=== PATIENT | female | born 1995 | race Caucasian/White ===

== ENCOUNTER → 2021-06-30 08:13 | Outpatient (BNVA) | payer OTHER, SELFPAY | PROVIDERS: Family Provider Family Medicine; Visit Provider Nurse Practitioner Women's Health | DX: N92.6 Irregular menstruation, unspecified (principal) | CPT/HCPCS: 81025 ==

== ENCOUNTER → 2021-07-21 11:14 | Outpatient (BNVA) | payer OTHER, SELFPAY | PROVIDERS: Family Provider Family Medicine; Visit Provider Obstetrics & Gynecology | DX: Z34.01 Encounter for supervision of normal first pregnancy, first trimester (principal) | CPT/HCPCS: 80307; 84315; 85027; 86592; 86762; 86803; 86850; 86900; 87086; 87340; 87491; 87591; 87806 ==

== ENCOUNTER → 2021-09-28 15:51 | Outpatient (BNVA) | payer OTHER, SELFPAY | PROVIDERS: Family Provider Family Medicine; Visit Provider Obstetrics & Gynecology | DX: Z36.89 Encounter for other specified antenatal screening (principal) | CPT/HCPCS: 76805 ==

== ENCOUNTER 2021-11-16 10:31 | Outpatient (CLI) | payer OTHER, SELFPAY ==
[2021-11-16 10:42] VITALS: BP 107/58; PULSE 76
[2021-11-16 10:58] VITALS: TEMP 36.3
[2021-11-16 11:11] VITALS: RESP 15
[2021-11-16 11:42] LABS: Add Urine Microscopic? YES; Bilirubin Urine Neg (Negative); Glucose Urine UA Norm (Normal); Ketones Urine Negative (Negative); Leukocyte Esterase Urine 2+ (Negative); Nitrate Urine Negative (Negative); Protein Urine Neg (Negative); Specific Gravity, Urine 1.015 (1.005-1.030); Urine Appearance Clear (CLEAR); Urine Color Yellow (Yellow); Urobilinogen Urine Norm (Negative); pH Urine 8 (5-7)
[2021-11-16 11:49] LABS: Blood Urine Neg (Negative)
[2021-11-16 11:53] VITALS: BMI 25.0
[2021-11-16 11:58] LABS: RBC Urine 0-4 /hpf (0-2)
[2021-11-16 11:59] LABS: Add Urine Culture? No; Bacteria Urine 1+ /hpf; WBC Urine 0-4 /hpf (0-5)
== END 2021-11-16 12:29 | disposition home or self-care (01) ==
LOC: OPOB 10:31 → OBGYN 10:32
PROVIDERS: Family Provider Family Medicine; Visit Provider Family Medicine
DX: O26.899 Other specified pregnancy related conditions, unspecified trimester (principal); Z3A.00 Weeks of gestation of pregnancy not specified; R10.9 Unspecified abdominal pain
CPT/HCPCS: 81001

== ENCOUNTER 2022-02-09 15:29 | Outpatient (CLI) | payer OTHER, SELFPAY ==
[2022-02-09 16:02] VITALS: BP 112/71; PULSE 92; BMI 26.7
[2022-02-09 16:24] VITALS: BP 118/76; PULSE 88
[2022-02-09 16:27] LABS: Basophils % 0.2 %; Eosinophils % 0.1 %; Hematocrit 34.7 % (37.0-47.0); Hemoglobin 11.7 g/dL (11.5-15.3); Lymphocytes # 2.2 10^3/uL (0.8-4.8); Mean Corpuscular HGB Conc 33.7 g/dL (30.0-36.0); Mean Corpuscular Hemoglobin 29.6 pg (28.0-34.0); Mean Corpuscular Volume 87.8 fl (81-99); Mean Platelet Volume 10.8 fL (7.4-10.4); Monocytes # 0.6 10^3/uL (0.2-0.9); Monocytes % 4.2 %; Neutrophils # 10.56 10^3/uL (1.8-7.7); Neutrophils % 78.9 %; Nucleated Red Blood Cells % 0 %; Platelet Count 198 10^3/cmm (130-400); Red Blood Count 3.95 10^6/uL (4.1-5.3); Red Cell Distribution Width 12.8 % (12.1-15.1); White Blood Count 13.4 10^3/uL (4.0-10.0)
[2022-02-09 16:32] VITALS: BP 114/70; PULSE 86
[2022-02-09 16:36] LABS: Alanine Aminotransferase 16 U/L (0-33); Albumin Level 3.8 g/dL (3.5-5.2); Alkaline Phosphatase 180 U/L (35-105); Anion Gap 16.4 (5-19); Aspartate Amino Transferase 21 U/L (0-32); Blood Urea Nitrogen 5 mg/dL (6-20); Calcium 9.2 mg/dL (8.5-10.5); Carbon Dioxide 21 mmol/L (22-29); Chloride 102 mmol/L (98-107); Globulin 2.7 g/dL (1.3-4.6); Glomerular Filtration Rate 273.3 mL/min (90-130); Glucose 132 mg/dL (65-115); Osmolality Calculated 281 mOsm/kg (285-295); Potassium 3.4 mmol/L (3.5-5.1); Sodium 136 mmol/L (136-145); Total Bilirubin 0.3 mg/dL (0.15-1.2); Total Protein 6.5 g/dL (6.6-8.7); Uric Acid 4.1 mg/dL (2.4-5.7)
[2022-02-09 16:37] LABS: Urine Creatinine 25 mg/dL (28-217); Urine Protein Random 5 mg/dL
[2022-02-09 16:48] VITALS: BP 108/65; PULSE 99
[2022-02-09 16:49] LABS: Bilirubin Urine Neg (Negative); Blood Urine 2+ (Negative); Glucose Urine UA Norm (Normal); Ketones Urine 1+ (Negative); Leukocyte Esterase Urine 2+ (Negative); Nitrate Urine Negative (Negative); Protein Urine Neg (Negative); Urine Appearance Clear (CLEAR); Urine Color Yellow (Yellow); Urobilinogen Urine Norm (Negative); pH Urine 7 (5-7)
[2022-02-09 16:50] LABS: Add Urine Culture? Yes; Add Urine Microscopic? YES; Bacteria Urine TRACE /hpf
[2022-02-09 17:03] VITALS: BP 118/81; PULSE 97
== END 2022-02-09 17:20 | disposition home or self-care (01) ==
LOC: OPOB 15:30 → OBGYN 15:31
PROVIDERS: Family Provider Family Medicine; Visit Provider Family Medicine
DX: O16.3 Unspecified maternal hypertension, third trimester (principal); Z3A.40 40 weeks gestation of pregnancy
CPT/HCPCS: 36415; 59025; 80053; 81001; 82570; 84156; 84550; 85025; 87086; 99211

== ENCOUNTER 2022-02-11 18:20 | Inpatient (IN) | payer OTHER, SELFPAY ==
[2022-02-11] VITALS (9 sets, daily range): BP systolic 120–165; BP diastolic 75–102; PULSE 81–132; RESP 16; O2SAT 97–99; BMI 25.8
[2022-02-11 19:29] LABS: Basophils % 0.2 %; Eosinophils % 0.1 %; Hematocrit 37.5 % (37.0-47.0); Hemoglobin 12.5 g/dL (11.5-15.3); Lymphocytes # 1.9 10^3/uL (0.8-4.8); Lymphocytes % 11.6 %; Mean Corpuscular HGB Conc 33.3 g/dL (30.0-36.0); Mean Corpuscular Hemoglobin 29.5 pg (28.0-34.0); Mean Corpuscular Volume 88.4 fl (81-99); Mean Platelet Volume 10.8 fL (7.4-10.4); Monocytes % 6.1 %; Neutrophils # 12.98 10^3/uL (1.8-7.7); Neutrophils % 81.3 %; Nucleated Red Blood Cells % 0 %; Platelet Count 216 10^3/cmm (130-400); Red Blood Count 4.24 10^6/uL (4.1-5.3); Red Cell Distribution Width 12.9 % (12.1-15.1)
--- NOTE | 2022-02-11 21:37 | PM.OPHPUD ---
Labor & Delivery H&P Update Date of Procedure: February 11, 2022 Date H&P Performed: 02/09/22 Changes to previous documentation: Cervix was dilated to 5 cm Admission Diagnosis: 26-year-old 1 at 40 weeks estimated gestational age Planned procedure: Spontaneous vaginal delivery Other information: The patient presented to the hospital having consistent contractions and dilated to 5 cm, having contractions every 2 to 5 minutes. When she initially arrived, she had a couple of blood pressures that were elevated. Because she had previously had elevated blood pressures that resolved with time in the past, I had the nurses recheck it again after 20 to 30 minutes. At that point, her blood pressure results normal. She had no other signs of preeclampsia. Her had otherwise been unremarkable. Her blood type was O+. Her antibody screen was negative. Her infectious disease profile was within normal limits. Her glucose screen was 132. She was GBS negative. Rubella immune. She did have a full preeclamptic panel performed on Saturday. Her protein was negative. With a protein creatinine ratio of 0.2. The remainder of her preeclamptic profile was also largely within normal limits. Related Problem List Diagnoses (1) 40 weeks gestation of : (2) Active labor at term: A&P Assessment and plan (1) 40 weeks gestation of : I anticipate routine labor. She is hoping to have a natural delivery. We will consider epidural or other pain control as needed. Status: Acute (2) Active labor at term: Status: Acute
[2022-02-11] MEDS: dextrose 5%-lactated ringers 1,000 ML 125 ML IV (22:15)
--- NOTE | 2022-02-11 22:36 | PM.DELIVERY ---
Delivery Note: Date of delivery: February 11, 2022 Pre-delivery diagnoses: 1. 26-year-old 1 at 40 weeks estimated gestational age Post-delivery diagnoses: Status post spontaneous vaginal delivery Procedure: Spontaneous vaginal delivery Delivering Physician: Yair Talbert Estimated blood loss (mL): 150 Pre-Delivery Course: The patient presented to the hospital in active labor. Spontaneous rupture of membranes occurred about 2 hours prior to delivery. Meconium was noted. She progressed to complete without difficulty. Delivery: DELIVERY: The patient progressed to complete without difficulty. She delivered a female with a weight of 7 pounds 1 ounce with Apgars of 8, 9. The baby was delivered from the SAVI position. and placed on the mother's abdomen. Bulb suction of the baby's mouth and nose occurred. The cord was then clamped and cut. A nuchal cord was noted and reduced prior to delivery of the head. Moderate meconium was noted. The placenta and 3 vessel cord were delivered intact shortly thereafter. The perineum and vaginal vault were carefully examined. The patient had several superficial vaginal wall lacerations. In her left vaginal posterior wall laceration continued to bleed. A single [id number] stitch was placed with 3-0 Vicryl and excellent hemostasis was noted. Both the mother and the baby were in stable condition. Post-Delivery Status: Good History History History 1 Term Miscarriages/Ectopic Living Children A&P Assessment and plan (1) 40 weeks gestation of : Status: Acute (2) Spontaneous vaginal delivery: I anticipate routine care. The patient plans to breast-feed. Status: Acute Coding Level of Care Code Acute Executive Staff Assistant for Chg Fwd Diagnoses 40 weeks gestation of Z3A.40 Spontaneous vaginal delivery O80
[2022-02-12] VITALS (9 sets, daily range): BP systolic 99–125; BP diastolic 61–87; PULSE 60–115; RESP 16; TEMP 36.6–36.8; O2SAT 97–99
[2022-02-12] MEDS: oxytocin 30 UNIT/500 ML BAG 600 UNIT IV (06:44)
[2022-02-12] MEDS: ibuprofen 800 mg tablet PO ×3 (08:07→22:14)
[2022-02-12] MEDS: docusate sodium 100 mg Capsule PO (08:07)
[2022-02-12] MEDS: prenatal vitamin Capsule 1 CAP PO (08:07)
[2022-02-12 11:39] LABS: Hematocrit 27.7 % (37.0-47.0); Hemoglobin 9.1 g/dL (11.5-15.3); Mean Corpuscular HGB Conc 32.9 g/dL (30.0-36.0); Mean Corpuscular Hemoglobin 29.3 pg (28.0-34.0); Mean Corpuscular Volume 89.1 fl (81-99); Mean Platelet Volume 10.4 fL (7.4-10.4); Platelet Count 175 10^3/cmm (130-400); Red Blood Count 3.11 10^6/uL (4.1-5.3); Red Cell Distribution Width 13.1 % (12.1-15.1); White Blood Count 17.6 10^3/uL (4.0-10.0)
--- NOTE | 2022-02-12 16:40 | P.PN_ITS ---
INSPECTOR OPTICAL INSTRUMENT Subjective Subjective: Interval history: The patient is doing very well. Her bleeding has been scant. Her pain has been well controlled. She is breast-feeding well. There have been no concerns. Labor: Station: 0 Amniotic Membrane Status: Bulging Monitor Mode: External Contraction Pattern: Regular Vitals/I&O/Wt Last Vital Signs Pulse 110 H 02/12/22 04:22 Resp 16 02/12/22 04:22 BP 110/71 02/12/22 04:22 Pulse Ox 97 02/12/22 04:22 O2 Del Method 02/12/22 04:22 02/12/22 02/12/22 02/12/22 06:59 14:59 22:59 Intake Total 156.25 / 156.25 Balance 156.25 / 156.25 Weight last 48 hrs Weight 146 lb Physical Exam Narrative: The patient is alert. She appears comfortable. Her heart has a regular rate and rhythm with no murmurs appreciated. Lungs are clear to auscultation bilaterally. Her fundus is firm and below the umbilicus. Data : 02/12/22 11:19 A&P Assessment and plan (1) Spontaneous vaginal delivery: The patient has done very well . Anticipate she will build to be discharged home tomorrow morning. There have been no concerns. Status: Acute (2) 40 weeks gestation of : Status: Acute Attestations Medical Necessity Statement*: Routine post vaginal delivery care Coding Level of Care Code Acute Security Vehicle Patrol Officer for Chg Fwd Diagnoses Spontaneous vaginal delivery O80 40 weeks gestation of Z3A.40
--- NOTE | 2022-02-13 03:22 | P.DS_ITS ---
Discharge Providers SUPERVISOR AGRICULTURAL EDUCATION Date of Admission: 02/11/22 18:20 Date of Discharge: 02/13/22 Attending Provider at Admission: Yair Talbert MD Attending Provider at Discharge: Yair Talbert MD Diagnoses at Discharge Discharge Diagnosis (1) Spontaneous vaginal delivery: Status: Acute (2) 40 weeks gestation of : Status: Acute Reason for Visit Reason for Visit: Contractions Hospital Course Hospital Course The patient presented to the hospital in active labor. She progressed to c omplete and had an unremarkable delivery of a healthy-appearing 40-week female infant. Her course was unremarkable. Her bleeding was within normal limits. Her pain was well controlled. Initially, she had some difficulty with breast-feeding, but that improved during her hospital stay. Physical Exam Narrative: The patient is alert. She appears comfortable. Her heart has a regular rate and rhythm with no murmurs appreciated. Lungs are clear to auscultation bilaterally. Her fundus is firm and below the umbilicus. History History History 1 Term Miscarriages/Ectopic Living Children Discharge Data Studies Completed and Pending Laboratory Results WBC 17.6 10^3/uL (4.0-10.0) H 02/12/22 11:19 RBC 3.11 10^6/uL (4.1-5.3) L 02/12/22 11:19 Hgb 9.1 g/dL (11.5-15.3) L 02/12/22 11:19 Hct 27.7 % (37.0-47.0) L 02/12/22 11:19 MCV 89.1 fl (81-99) 02/12/22 11:19 MCH 29.3 pg (28.0-34.0) 02/12/22 11:19 MCHC 32.9 g/dL (30.0-36.0) 02/12/22 11:19 RDW 13.1 % (12.1-15.1) 02/12/22 11:19 Plt Count 175 10^3/cmm (130-400) 02/12/22 11:19 MPV 10.4 fL (7.4-10.4) 02/12/22 11:19 Neut % (Auto) 81.3 % 02/11/22 18:51 Lymph % (Auto) 11.6 % 02/11/22 18:51 [place] % (Auto) 6.1 % 02/11/22 18:51 Eos % (Auto) 0.1 % 02/11/22 18:51 Baso % (Auto) 0.2 % 02/11/22 18:51 Neut # (Auto) 12.98 10^3/uL (1.8-7.7) H 02/11/22 18:51 Lymph # (Auto) 1.9 10^3/uL (0.8-4.8) 02/11/22 18:51 [place] # (Auto) 1.0 10^3/uL (0.2-0.9) H 02/11/22 18:51 Eos # (Auto) 0.0 10^3/uL (0.0-0.8) 02/11/22 18:51 Baso # (Auto) 0.0 10^3/uL (0.0-0.1) 02/11/22 18:51 Nucleated RBC % (auto) 0 % 02/11/22 18:51 Nucleated RBCs # 0.0 /100WBC 02/11/22 18:51 Vitals Last Vital Signs Temp 97.9 F 02/12/22 23:35 Pulse 72 02/12/22 23:35 Resp 16 02/12/22 23:35 BP 114/64 02/12/22 23:35 Pulse Ox 98 02/12/22 23:35 O2 Del Method 02/12/22 23:35 Discharge Plan Discharge Patient Disposition: Home Condition: Stable Prescriptions: New ibuprofen 800 mg Tablet 800 mg PO TID Qty: 45 0RF Continued prenat.vits,michael,[id number] Tablet 1 tab PO DAILY vitamin E (dl, acetate) 45 mg (100 unit) capsule 45 mg PO DAILY Discharge Orders: Discharge Order (Routine); Ordered 02/13/22 Ordered By: Yair Talbert Referrals: Yair Talbert MD [Physician] - 6 Weeks Discharge Diet: Usual diet Discharge Activity: Limit activity as instructed Patient Instructions: Opioid Safety Discharge Attestations SUPERVISOR AGRICULTURAL EDUCATION Time Spent in Discharge Care*: less than 30 min Coding Level of Care Code Acute Hide Trimmer for Chg Fwd Diagnoses Spontaneous vaginal delivery O80 40 weeks gestation of Z3A.40
[2022-02-13 04:40] VITALS: BP 114/66; PULSE 81; RESP 18; TEMP 36.8; O2SAT 98
[2022-02-13 12:15] VITALS: BP 110/68; PULSE 80; RESP 18; TEMP 36.8; O2SAT 98
== END 2022-02-13 12:15 | disposition home or self-care (01) | DRG 806 ==
LOC: OPOB 18:27 → OBGYN 18:27
PROVIDERS: Admitting Provider Family Medicine; Family Provider Family Medicine; Visit Provider Family Medicine
DX: O77.0 Labor and delivery complicated by meconium in amniotic fluid (principal); O71.4 Obstetric high vaginal laceration alone; Z37.0 Single live birth; O69.81X0 Labor and delivery complicated by cord around neck, without compression, not applicable or unspecified; Z3A.40 40 weeks gestation of pregnancy
CPT/HCPCS: 12345; 36415; 59409; 85025; 85027

== ENCOUNTER 2022-04-09 19:20 | Emergency (ER) | payer OTHER, SELFPAY ==
[2022-04-09 19:35] VITALS: BP 147/95; PULSE 102; RESP 16; TEMP 36.2; O2SAT 98
--- NOTE | 2022-04-09 23:37 | ED_ITS ---
HPI - General Adult General: Chief complaint: Airway/Esophagus Foreign Body Stated complaint: breathing troubles Time Seen by Provider: 04/09/22 23:37 History of Present Illness: 26-year-old female comes in [facility] for complaints of feeling as something is stuck in her throat. Patient was eating a turkey burger when she felt it got stuck in her throat patient since then has been able to swallow it down and has been drinking water without difficulty but continues to have some discomfort in her throat. Patient appears nontoxic. Patient denies any nausea or vomiting. Patient recently given approximately 2 to 3 months ago and continues to take vitamin. Patient denies any recurrent heartburn since having baby. Associated symptoms: Deny nausea or vomiting Review of Systems Const: Denies: fever(s) ENMT: Reports: throat pain GI: Denies: nausea or vomiting PFSH ED PFSH: Medical History No pertinent past medical history neghx:htn,dm,thyroid,dvt/pe PCP: none Surgical History No pertinent past surgical history Family History Grandfather Diabetes MGF Father Lung disease COPD Denies family history of Hyperlipidemia Chronic kidney disease (CKD) Family history of premature coronary artery disease Cancer Hypertension Stroke Physical Exam Const: COMMON NORMALS: alert HENMT: COMMON NORMALS: normocephalic HEAD & SCALP: normocephalic MOUTH: Normal oral and palatal mucosa present THROAT: posterior oropharynx normal Neck/C-Spine: COMMON NORMALS: full ROM Resp: COMMON NORMALS: normal respiratory effort and clear to auscultation bilaterally AUSCULTATION: clear to auscultation bilaterally Cardio: COMMON NORMALS: regular rate and regular rhythm RATE: regular rate RHYTHM: regular rhythm GI: COMMON NORMALS: Soft to palpation and non-tender PALPATION: Yes Soft to palpation : COMMON NORMALS: Yes no CVA tenderness BLADDER/KIDNEY EXAM: Yes no CVA tenderness Back/Pelvis: COMMON NORMALS: no CVA tenderness Extremity: COMMON NORMALS: normal to inspection Neuro: SENSORIUM/ORIENTATION: Yes alert Skin: COMMON NORMALS: turgor normal GENERAL SKIN EXAM: turgor normal Course Vital Signs: Vital signs: Vital Signs Temperature 97.2 F L 04/09/22 19:35 Pulse Rate 102 H 04/09/22 19:35 Respiratory Rate 16 04/09/22 19:35 Blood Pressure 147/95 04/09/22 19:35 Pulse Oximetry 98 04/09/22 19:35 Oxygen Delivery Me thod 04/09/22 19:35 MDM - General Adult Medical Decision Making 26-year-old female comes in today with sensation of foreign body in throat. On exam patient is swallowing secretions without any difficulty. Patient has had no episodes of emesis and has been able to drink water. Abdomen soft nontender. Respirations are even lungs are clear to auscultation. Vital signs are normal. Differential diagnosis includes esophageal foreign body, esophageal strain, malingering. X-ray of soft tissues of neck and chest showed no sign of foreign body or abnormality. Patient was given a GI cocktail with minimal to no relief. Reviewed exam with patient with recommendations for follow-up with primary care in the morning, return to the ER for worsening symptoms such as fever, increased chest pain, emesis, blood in emesis or stool. Discharge Plan Discharge Patient Disposition: Home Clinical Impression: Sensation of foreign body in throat Condition: Stable Prescriptions: No Action prenat.vits,michael,hya-olhx-kmlnr Tablet 1 tab PO DAILY vitamin E (dl, acetate) 45 mg (100 unit) capsule 45 mg PO DAILY ibuprofen 800 mg Tablet 800 mg PO TID Qty: 45 0RF Discharge Orders: Discharge ED (Routine); Ordered 04/10/22 Ordered By: Checo Resendiz Activity Restrictions/Additional Instructions: Follow-up with primary care in the morning. Eat a mechanical soft diet for the next 24 to 48 hours. Return to ER for severe pain, high fever greater than 100.4, blood in vomit or stool. Coding Level of Care Code ED Heavy Lift Rigger for Tierney Fwhammad Exam Comprehensive
--- NOTE | 2022-04-09 23:41 | XRR_ITS ---
PROCEDURE INFORMATION: Exam: XR Soft Tissue Neck Exam date and time: 04/09/2022 11:55 PM Age: 26 years old Clinical indication: Other: Possible foregin body; Patient HX: Patient feels a piece of food is stuck in throat. Is able to keep water down. ; Additional info: Foreign body sensation TECHNIQUE: Imaging protocol: Radiologic exam of the soft tissues of the neck. COMPARISON: No relevant prior studies available. FINDINGS: Airway: Normal. No abnormal narrowing. Soft tissues: Normal. Normal epiglottis. Bones/joints: Unremarkable. XR/XR soft tissue neck [id number] IMPRESSION: No acute findings. Negative for radiodense foreign body.
--- NOTE | 2022-04-09 23:41 | XRR_ITS ---
PROCEDURE INFORMATION: Exam: XR Chest Exam date and time: 04/09/2022 11:55 PM Age: 26 years old Clinical indication: Other: Foreign body; Patient HX: Patient thinks a piece of food is stuck in throat. Able to keep water down. ; Additional info: Foreign body sensation TECHNIQUE: Imaging protocol: Radiologic exam of the chest. Views: 2 views. COMPARISON: No relevant prior studies available. FINDINGS: Lungs: Right lower lobe atelectasis versus infiltrate. Pleural spaces: Unremarkable. No pleural effusion. No pneumothorax. Heart/Mediastinum: Unremarkable. No cardiomegaly. Bones/joints: Unremarkable. XR/XR chest 2V* [id number] IMPRESSION: Right lower lobe atelectasis versus infiltrate.
[2022-04-09] MEDS: lidocaine 2% viscous 15 ML, aluminum-mag hydrox-simethicon 30 ML, sucralfate oral liq 1 GM PO (23:52)
[2022-04-10 00:38] VITALS: BP 118/73; PULSE 90; RESP 14; O2SAT 97
[2022-04-10 00:46] VITALS: BP 118/73; PULSE 90; RESP 14; O2SAT 97
== END 2022-04-10 00:47 | disposition home or self-care (01) ==
PROVIDERS: Emergency Provider Nurse Practitioner Family
DX: R09.89 Other specified symptoms and signs involving the circulatory and respiratory systems (principal)
CPT/HCPCS: 70360; 71046; 99283

== ENCOUNTER 2024-07-29 10:47 | Emergency (ER) | payer OTHER, SELFPAY ==
[2024-07-29 10:59] VITALS: BP 105/68; PULSE 60; RESP 16; TEMP 36.8; O2SAT 99; BMI 24.7
[2024-07-29 11:25] LABS: Basophils # 0.1 10^3/uL (0.0-0.1); Basophils % 0.6 %; Eosinophils # 0.1 10^3/uL (0.0-0.8); Eosinophils % 1.1 %; Hematocrit 36.8 % (36-47); Lymphocytes # 3.2 10^3/uL (0.8-4.8); Lymphocytes % 40.1 %; Mean Corpuscular HGB Conc 33.2 g/dL (30-55); Mean Corpuscular Hemoglobin 28.4 pg (27-33); Mean Corpuscular Volume 85.8 fl (85-98); Monocytes # 0.7 10^3/uL (0.2-0.9); Monocytes % 8.2 %; Neutrophils # 3.94 10^3/uL (1.8-7.7); Neutrophils % 49.6 %; Nucleated Red Blood Cells % 0 %; Platelet Count 260 10^3/cmm (157-399); Red Blood Count 4.29 10^6/uL (3.85-5.65); Red Cell Distribution Width 13.1 % (12.1-15.1); White Blood Count 7.95 10^3/uL (3.29-11.43)
--- NOTE | 2024-07-29 11:27 | W.ED.ABDPA2 ---
HPI - Abdominal Pain General: Chief Complaint: Abdominal Pain Stated Complaint: right side abdominal pain Time Seen by Provider: 07/29/24 11:06 History of Present Illness: 29-year-old female presents emergency room with a right lower quadrant abdominal pain that she has had for a 1 week. She was seen in the primary care doctor's office thought she had a yeast infection. She states she is continuing to have pain. She has not improved at all. She denies any dysuria Associated Symptoms: Denies chills, dysuria and fever(s) Related Data Home Medications ?Medication ?Instructions ?Recorded ?Confirmed fluoxetine 40 mg capsule 40 mg PO DAILY 07/29/24 07/29/24 ibuprofen 800 mg tablet 800 mg PO TID PRN Fever Or Pain 07/29/24 07/29/24 vit no.133-ferrous 1 tab PO DAILY 07/29/24 07/29/24 fumarate 28 mg-folic acid 800 mcg tablet () Previous Rx's ?Medication ?Instructions ?Recorded diclofenac sodium 75 mg 75 mg PO Q12H PRN pain #20 tabs 07/29/24 tablet,delayed release lactulose 20 gram/30 mL oral 20 g (30 mL) PO Q2H 24 hours #360 07/29/24 solution mL Allergies Allergy/AdvReac Type Severity Reaction Status Date / Time No Known Allergies Allergy Verified 09/29/21 10:52 Review of Systems Const: Denies: fever(s) or chills Card: Denies: chest pain Resp: Denies: dyspnea GI: Denies: abdominal pain : Denies: dysuria, urinary frequency or urinary urgency Musc: Denies: neck pain or back pain Skin/Breast: Denies: rash [facility] ED PFSH: Medical History No pertinent past medical history neghx:htn,dm,thyroid,dvt/pe PCP: none Surgical History No pertinent past surgical history Family History Grandfather Diabetes MGF Father Lung disease COPD Denies family history of Hyperlipidemia Chronic kidney disease (CKD) Family history of premature coronary artery disease Cancer Hypertension Stroke Physical Exam Const: COMMON NORMALS: no acute distress GENERAL APPEARANCE: cooperative and comfortable ORIENTATION/CONSCIOUSNESS: Yes awake, Yes oriented to person, Yes oriented to place and Yes oriented to time HENMT: COMMON NORMALS: normocephalic, atraumatic and hearing grossly normal bilaterally HEAD & SCALP: normocephalic and atraumatic Resp: COMMON NORMALS: normal respiratory effort, No retractions, No use of accessory muscles and clear to auscultation bilaterally AUSCULTATION: clear to auscultation bilaterally Cardio: COMMON NORMALS: regular rate, regular rhythm and No murmurs present (Cardio) RATE: regular rate RHYTHM: regular rhythm GI: COMMON NORMALS: Soft to palpation and No hepatosplenomegaly present AUSCULTATION: Yes normoactive bowel sounds PALPATION: Yes Soft to palpation, No Tenderness to palpation present (GI), No Guarding due to palpation present (GI) and Yes No hepatosplenomegaly present Extremity: COMMON NORMALS: normal to inspection, capillary refill normal, no clubbing, cyanosis or edema, no calf tenderness and no pedal edema Neuro: SENSORIUM/ORIENTATION: Yes oriented to person, Yes oriented to place and Yes oriented to time Skin: COMMON NORMALS: no rashes or lesions noted GENERAL SKIN EXAM: no rashes or lesions noted Course Vital Signs: Vital signs: Vital Signs Temperature 98.2 F 07/29/24 10:59 Pulse Rate 73 07/29/24 14:01 Respiratory Rate 16 07/29/24 10:59 Blood Pressure 99/64 07/29/24 14:01 Pulse Oximetry 100 07/29/24 14:01 Oxygen Delivery Me thod Room Air 07/29/24 13:16 MDM - Abdominal Pain Medical Decision Making Appendix not definitively identified on the CT however given a normal white count Present symptoms and relatively normal exam I do not believe she has an acute appendicitis she does have a fair amount of retained stool in the right sided colon additionally she has some fluid in pelvis consistent with recent ovarian cyst either these could be the cause of her pain. No emergent condition found will discharge home with diclofenac. lactulose to relieve her constipation. Follow-up with primary care doctor improving Differential Diagnosis Likely abdominal pain, acute appendicitis, calculus of kidney, constipation and gastroenteritis Medical Records I reviewed the patient's medical records. Lab Data I reviewed the patient's lab results. 07/29/24 11:22 07/29/24 11:22 Labs/Radiology: Radiology Impressions Abdomen/Pelvis CT 07/29/24 11:33 IMPRESSION: 1. Appendix is not visualized but no evidence of acute appendicitis. 2. Peripheral enhancing RIGHT corpus luteum cyst with a small amount of free fluid in the cul-de-sac. 3. Mild pancolonic constipation. 4. Mild diffuse fatty infiltration of the liver. 5. Small esophageal canal hernia. 6. No other acute findings. Laboratory Results WBC 7.95 10^3/uL (3.29-11.43) 07/29/24 11:22 RBC 4.29 10^6/uL (3.85-5.65) 07/29/24 11:22 Hgb 12.20 g/dL (11.27-16.99) 07/29/24 11:22 Hct 36.8 % (36-47) 07/29/24 11:22 MCV 85.8 fl (85-98) 07/29/24 11:22 MCH 28.4 pg (27-33) 07/29/24 11:22 MCHC 33.2 g/dL (30-55) 07/29/24 11:22 RDW 13.1 % (12.1-15.1) 07/29/24 11:22 Plt Count 260 10^3/cmm (157-399) 07/29/24 11:22 MPV 9.0 fL (7.4-10.4) 07/29/24 11:22 Neut % (Auto) 49.6 % 07/29/24 11:22 Lymph % (Auto) 40.1 % 07/29/24 11:22 [place] % (Auto) 8.2 % 07/29/24 11:22 Eos % (Auto) 1.1 % 07/29/24 11:22 Baso % (Auto) 0.6 % 07/29/24 11:22 Neut # (Auto) 3.94 10^3/uL (1.8-7.7) 07/29/24 11:22 Lymph # (Auto) 3.2 10^3/uL (0.8-4.8) 07/29/24 11:22 [place] # (Auto) 0.7 10^3/uL (0.2-0.9) 07/29/24 11:22 Eos # (Auto) 0.1 10^3/uL (0.0-0.8) 07/29/24 11:22 Baso # (Auto) 0.1 10^3/uL (0.0-0.1) 07/29/24 11:22 Nucleated RBC % (auto) 0 % 07/29/24 11:22 Nucleated RBCs # 0.0 /100WBC 07/29/24 11:22 Sodium 138 mmol/L (136-145) 07/29/24 11:22 Potassium 4.0 mmol/L (3.5-5.1) 07/29/24 11:22 Chloride 100 mmol/L (98-107) 07/29/24 11:22 Carbon Dioxide 25 mmol/L (22-29) 07/29/24 11:22 Anion Gap 17.0 (5-19) 07/29/24 11:22 BUN 11 mg/dL (6-20) 07/29/24 11:22 Creatinine 0.5 mg/dL (0.5-0.9) 07/29/24 11:22 GFR Calculation 148.0 mL/min (90-130) H 07/29/24 11:22 Glucose 89 mg/dL (65-115) 07/29/24 11:22 Calculated Osmolality 285 mOsm/kg (285-295) 07/29/24 11:22 Calcium 9.2 mg/dL (8.5-10.5) 07/29/24 11:22 Total Bilirubin 0.3 mg/dL (0.15-1.2) 07/29/24 11:22 AST 14 U/L (0-32) 07/29/24 11:22 ALT 15 U/L (0-33) 07/29/24 11:22 Alkaline Phosphatase 63 U/L (35-105) 07/29/24 11:22 Total Protein 7.1 g/dL (6.6-8.7) 07/29/24 11:22 Albumin 4.4 g/dL (3.5-5.2) 07/29/24 11:22 Globulin 2.7 g/dL (1.3-4.6) 07/29/24 11:22 Lipase 46 U/L (13-60) 07/29/24 11:22 HCG, Qual Negative (Negative) 07/29/24 11:22 Urine Color Yellow (Yellow) 07/29/24 11:32 Urine Appearance Clear (CLEAR) 07/29/24 11:32 Urine pH 7.5 (5-7) 07/29/24 11:32 Ur Specific [place] 1.007 (1.005-1.030) 07/29/24 11:32 Urine Protein Negative (Negative) 07/29/24 11:32 Urine Glucose (UA) Negative (Normal) 07/29/24 11:32 Urine Ketones Negative (Negative) 07/29/24 11:32 Urine Blood Negative (Negative) 07/29/24 11:32 Urine Nitrate Negative (Negative) 07/29/24 11:32 Urine Bilirubin Negative (Negative) 07/29/24 11:32 Urine Urobilinogen 0.2 mg/dL (Negative) 07/29/24 11:32 Ur Leukocyte Esterase Negative (Negative) 07/29/24 11:32 Amorphous Sediment Not Reportable 07/29/24 11:32 All radiology interpretation(s) finalized by discharge Discharge Plan Discharge Patient Disposition: Home Clinical Impression: Abdominal pain, Constipation Condition: Stable Prescriptions: New diclofenac sodium 75 mg tablet,delayed release (DR/EC) 75 mg PO Q12H PRN (Reason: pain) Qty: 20 0RF lactulose 20 gram/30 mL solution 20 g PO Q2H 1 Days Qty: 360 0RF Rx Instructions: until desired laxative effect No Action fluoxetine 40 mg capsule 40 mg PO DAILY 28-800 mg-mcg Tablet 1 tab PO DAILY ibuprofen 800 mg tablet 800 mg PO TID PRN (Reason: Fever Or Pain) Discharge Orders: Discharge ED (Routine); Ordered 07/29/24 Ordered By: Ray David Discharge Diet: Usual diet Discharge Activity: Increase activity as tolerated Patient Instructions: Abdominal Pain (ED), Opioid Safety, Pain Management Activity Restrictions/Additional Instructions: Thank you for choosing [facility] for your healthcare needs today. It is very important that you follow up as instructed or that you return to the Emergency Department should you have concerns or if your condition changes or worsens in any way. You were seen in the emergency room with pelvic pain. There is signs you may have had a recent ovarian cyst she also had constipation. Remainder of your labs were normal no other acute findings on the CT. You can is diclofenac and lactulose as needed. Print Language: Belarusian Coding Level of Care Code ED Marketing Administrative Assistant for Tierney Chowdary
--- NOTE | 2024-07-29 11:33 | CT_ITS ---
WS: [id number] CT ABDOMEN PELVIS TECHNIQUE: Contrast-enhanced CT of the abdomen and pelvis with coronal and sagittal reformatted images. CLINICAL INFORMATION: abd pain/right lower quadrant COMPARISON: None. DLP: 420.[address] scans at [facility] use at least one of these dose optimization techniques: automated exposure control; mA and/or kV adjustment per patient size (includes targeted exams where dose is matched to clinical indication); or iterative reconstruction. FINDINGS: Mild diffuse fatty infiltration of the liver. Lung bases are well aerated. Normal spleen. Small esophageal hiatal hernia. Adrenal glands are normal. Normal renal parenchymal enhancement. No hydronephrosis. Normal spleen. Normal pancreas. Portal vein and splenic vein are normal. Normal caliber abdominal aorta. Celiac and SMA are patent. Tiny fat-containing umbilical hernia. Appendix is not visualized but no evidence of acute appendicitis. Mild pancolonic constipation. Peripheral enhancing RIGHT corpus luteum cyst measuring 1.6 x 1.1 cm. Small amount of free fluid in the cul-de-sac. No evidence of small or large bowel obstruction. Mild thoracolumbar scoliosis. CT/CT abdomen pelvis w con* [id number] IMPRESSION: 1. Appendix is not visualized but no evidence of acute appendicitis. 2. Peripheral enhancing RIGHT corpus luteum cyst with a small amount of free f luid in the cul-de-sac. 3. Mild pancolonic constipation. 4. Mild diffuse fatty infiltration of the liver. 5. Small esophageal canal hernia. 6. No other acute findings.
[2024-07-29 11:36] VITALS: BP 102/63; PULSE 71; O2SAT 99
[2024-07-29 11:49] LABS: Alanine Aminotransferase 15 U/L (0-33); Albumin Level 4.4 g/dL (3.5-5.2); Alkaline Phosphatase 63 U/L (35-105); Aspartate Amino Transferase 14 U/L (0-32); Blood Urea Nitrogen 11 mg/dL (6-20); Calcium 9.2 mg/dL (8.5-10.5); Carbon Dioxide 25 mmol/L (22-29); Chloride 100 mmol/L (98-107); Creatinine Clr Calc Pharmacy 151.6555; Globulin 2.7 g/dL (1.3-4.6); Glucose 89 mg/dL (65-115); Lipase 46 U/L (13-60); Osmolality Calculated 285 mOsm/kg (285-295); Sodium 138 mmol/L (136-145); Total Bilirubin 0.3 mg/dL (0.15-1.2); Total Protein 7.1 g/dL (6.6-8.7)
[2024-07-29 11:50] LABS: Add Urine Microscopic? NO
[2024-07-29 11:52] LABS: Bilirubin Urine Negative (Negative); Blood Urine Negative (Negative); Glucose Urine UA Negative (Normal); Ketones Urine Negative (Negative); Leukocyte Esterase Urine Negative (Negative); Nitrate Urine Negative (Negative); Protein Urine Negative (Negative); Specific Gravity, Urine 1.007 (1.005-1.030); Urine Appearance Clear (CLEAR); Urine Color Yellow (Yellow); Urobilinogen Urine 0.2 mg/dL (Negative); pH Urine 7.5 (5-7)
[2024-07-29 12:08] LABS: Add Urine Culture? No; Charge for UA Resulting for Rev
[2024-07-29 12:12] LABS: HCG, Serum Qual Negative (Negative)
[2024-07-29 12:33] VITALS: BP 102/61; PULSE 67; O2SAT 97
[2024-07-29 13:16] VITALS: BP 108/57; PULSE 61; O2SAT 99
[2024-07-29 14:01] VITALS: BP 99/64; PULSE 73; O2SAT 100
== END 2024-07-29 14:03 | disposition home or self-care (01) ==
PROVIDERS: Emergency Medicine; Emergency Provider Family Medicine
DX: R10.31 Right lower quadrant pain (principal); K59.00 Constipation, unspecified
CPT/HCPCS: 36415; 74177; 80053; 81003; 83690; 84703; 85025; 99284